=== PATIENT | female | born 1980 | race Caucasian/White ===

== ENCOUNTER 2020-01-19 08:39 | Outpatient (CLI) | payer BC ==
--- NOTE | 2020-01-19 10:52 | ULT ---
ABDOMINAL ULTRASOUND: Date: 01/19/2020 INDICATION: Abdominal pain. FINDINGS: Gallbladder has a normal appearance. No evidence of gallstones. Common bile duct is normal caliber, measured at 3-4 mm. Visualized aorta and IVC unremarkable. Visualized pancreas unremarkable. Liver and spleen appear unremarkable. Both kidneys are imaged and appear unremarkable. IMPRESSION: Unremarkable abdominal ultrasound. POS: [facility]
== END 2020-01-19 08:40 | disposition home or self-care (01) ==
LOC: BICULT 08:39
PROVIDERS: ATTEND Family Medicine
DX: R10.9 Unspecified abdominal pain (principal)
CPT/HCPCS: 93975